=== PATIENT | male | born 1970 | race Two or more races ===

== ENCOUNTER 2020-03-12 19:52 | Emergency (ER) | payer MEDICAID, OTHER ==
[~2020-03-12] VITALS: Ht 167.6 cm; Wt 66.7 kg
--- NOTE | 2020-03-12 20:00 | NUR ---
PT BIBSELF C/O L SIDE CHEST PAIN X1 DAY. ALSO C/O NAUSEA, VOMITTING. PT DESCRIBES PAIN INTERMITTENT FOR A FEW SECONDS, DESCRIBED TIGHT/SQUEEZING. DENIES TRAUMA, SOB, DIZZINESS. PT AAOX4. VITAL SIGNS STABLE. RESPIRATIONS EVEN AND UNLABORED. SKIN WARM AND INTACT. NO ACUTE DISTRESS NOTED AT THIS TIME. PLACED IN GOWN AND ON CONTINUOUS TRIM MOUNTER AND PULSE OX, WILL CONTINUE TO MONTIOR.
--- NOTE | 2020-03-12 20:20 | NUR ---
IV INITIATED LAC 18G. LABS DRAWN FROM SITE. TENTERING MACHINE OFF BEARER AT BEDSIDE FOR COLLECTION. IV INTACT AND PATENT, PLACED ON SALINE LOCK
[2020-03-12 20:26] LABS: BASOPHILS % (AUTO) 0.6 % (0.0-2.0); EOSINOPHILS % (AUTO) 1.7 % (0.0-6.0); HEMATOCRIT 44 % (39-51); HEMOGLOBIN 14.8 g/dL (13.5-17.5); LYMPHOCYTES # (AUTO) 2.1 /CMM (0.8-4.8); LYMPHOCYTES % (AUTO) 28.3 % (20.0-44.0); MEAN CORPUSCULAR HGB CONC 34 g/dl (31.0-36.0); MEAN CORPUSCULAR VOLUME 94 fL (80-96); MONOCYTES # (AUTO) 0.5 /CMM (0.1-1.30); MONOCYTES % (AUTO) 6.8 % (2.0-12.0); NEUTROPHILS # (AUTO) 4.5 /CMM (1.8-8.9); NEUTROPHILS % (AUTO) 62.6 % (43.0-81.0); PLATELET COUNT (AUTO) 189 /CMM (150-450); RED BLOOD CELL COUNT(AUTO) 4.64 MIL/uL (4.5-6.0); WHITE BLOOD COUNT (AUTO) 7.3 K/uL (4.3-11.0)
[2020-03-12 20:40] LABS: CALCIUM, SERUM 9.8 mg/dL (8.5-10.1); CARBON DIOXIDE 28 mmol/L (21-32); CHLORIDE 101 mmol/L (98-107); CREATININE 0.9 mg/dL (0.6-1.3); GLUCOSE 107 mg/dL (74-106); POTASSIUM 3.8 mmol/L (3.5-5.1); SODIUM SERUM 138 mmol/L (136-145); UREA NITROGEN, BLOOD 12 mg/dL (7-18)
--- NOTE | 2020-03-12 20:43 | NUR ---
RADIOLOGY AT BEDSIDE FOR CXR
[2020-03-12 20:52] LABS: ALANINE AMINOTRANSFERASE 27 U/L (12-78); ALBUMIN 4.1 g/dL (3.4-5.0); ALKALINE PHOSPHATASE 84 U/L (46-116); ASPARTATE AMINOTRANSFERASE 24 U/L (15-37); BILIRUBIN,DIRECT 0.1 mg/dL (0.0-0.2); BILIRUBIN,TOTAL 0.6 mg/dL (0.2-1.0); TOTAL PROTEIN, SERUM 8.3 g/dL (6.4-8.2)
[2020-03-12] MEDS ORDERED: MORPHINE SULFATE INJ 2 MG/ML DISP.SYRIN IV ONE (21:00)
--- NOTE | 2020-03-12 21:09 | NUR ---
PT REFUSING MORPHINE AT THIS TIME. AWARE
[2020-03-12] MEDS ORDERED: MORPHINE SULFATE INJ 2 MG/ML DISP.SYRIN ONE (21:36)
[2020-03-12] MEDS ORDERED: IOHEXOL-350 100 ML VIAL IV ONE (21:49)
[2020-03-12] MEDS ORDERED: CT SWABBABLE VALVE TRANS SET 1 EA INFUS.SET MC ONE (21:49)
[2020-03-12] MEDS ORDERED: IV NS 0.9% 250 ML IV ONE (21:49)
--- NOTE | 2020-03-12 22:05 | NUR ---
PT BROUG[facility] BY RADIOLOGY [facility]
--- NOTE | 2020-03-12 22:19 | NUR ---
PT RETURNED FROM CT
[2020-03-12 22:59] VITALS: BP 129/81
--- NOTE | 2020-03-12 22:59 | NUR ---
Patient discharged to home in stable condition. Written and verbal after care instructions given. Patient verbalizes understanding of instruction.IV removed. Catheter intact and site benign. Pressure and 4x4 applied to site. No bleeding noted.Pt ambulatory with a steady gait. Pt instructed not to drive, verbalized understanding. Picked up by family
== END 2020-03-12 23:00 | disposition home or self-care (01) ==
LOC: ER 19:53
DX: R07.89 Other chest pain (principal); Z85.21 Personal history of malignant neoplasm of larynx
CPT/HCPCS: 36415; 71045; 71275; 80048; 80076; 84484; 85025; 85378; 93005; 96374; 99285; J2270; J7050; Q9967